=== PATIENT | female | born 1945 | race Caucasian/White ===

== ENCOUNTER 2020-02-07 17:27 | Inpatient (IN) ==
[2020-02-07] MEDS ORDERED: Naloxone 0.4 MG/ML INJ IVP PRN (19:56)
[2020-02-07] MEDS ORDERED: Ondansetron 4 MG/2 ML VIAL IVP PRN (19:56)
[2020-02-07] MEDS ORDERED: Ipratropium/Albuterol Neb 3 ML IH PRN (20:00)
[2020-02-07] MEDS: 0.9 % Sodium Chloride 1,000 ML IVC SCH (20:12)
[2020-02-07] MEDS: *HR* Heparin 5,000 UNIT/ML VIAL SQ SCH (20:34)
[2020-02-07] MEDS ORDERED: Dextrose Gel 15 GM/37.5 ML TUBE PO PRN ×2 (20:48)
[2020-02-07] MEDS ORDERED: *HR* HYDROmorphone (PF) 1 MG/ML SYRINGE IVP PRN (20:48)
[2020-02-07] MEDS ORDERED: *HR* Dextrose 50 % in Water (Syg) 50 ML SYRINGE IVP PRN (20:48)
[2020-02-07] MEDS ORDERED: D5% in Water 1,000 ML IVC PRN (20:48)
[2020-02-07] MEDS: Insulin LISPRO 300 UNITS/3 ML VIAL SQ SCH ×2 (22:08→22:09)
[2020-02-07] MEDS: Topiramate 25 MG TABLET PO SCH (22:13)
[2020-02-07] MEDS: clonazePAM 1 MG TABLET PO SCH (22:13)
[2020-02-08] MEDS: Piperacillin/Tazobactam 3.375 GM in 0.9 % Sodium Chloride Mini Bag 100 ML IVPB SCH ×4 (00:11→23:36)
[2020-02-08] MEDS: Acetaminophen 325 MG TABLET PO PRN ×2 (04:38→11:41)
[2020-02-08] MEDS: *HR* Heparin 5,000 UNIT/ML VIAL SQ SCH ×3 (04:39→20:24)
[2020-02-08] MEDS: 0.9 % Sodium Chloride 1,000 ML IVC SCH (04:39)
[2020-02-08 05:04] LABS: Basophils % 0.2 %; Eosinophils # 0.3 K/mcL (0.0-0.6); Hemoglobin 13.2 g/dL (11.5-15.4); Immature Granulocytes % 0.3 % (0-4); Lymphocytes # 1.8 K/mcL (0.6-4.6); Lymphocytes % 13.9 %; Mean Corpuscular HGB Conc 31.4 g/dL (31.6-35.5); Mean Corpuscular Hemoglobin 31.5 pg (28.0-33.3); Mean Corpuscular Volume 100.2 fL (83.0-100.0); Mean Platelet Volume 9.5 fL (9.4-12.4); Monocytes # 0.9 K/mcL (0.0-1.3); Neutrophils # 10.1 K/mcL (1.6-8.9); Platelet Count 214 K/mcL (140-400); Red Blood Count 4.19 M/mcL (3.82-4.97); Red Cell Distribution Width 13.1 % (11.5-14.5); Segmented Neutrophils % 76.6 %; White Blood Count 13.2 K/mcL (4.3-11.1)
[2020-02-08 05:07] LABS: INR 1.1; Prothrombin Time 12.1 Seconds (9.4-12.1)
[2020-02-08 05:23] LABS: Alanine Aminotransferase 31 Units/L (7-52); Albumin 3.9 g/dL (3.5-5.7); Albumin/Globulin Ratio 1.7 (1.1-2.2); Alkaline Phosphatase 68 Units/L (34-104); Aspartate Amino Transferase 38 Units/L (13-39); BUN/Creatinine Ratio 29 (6-26); Blood Urea Nitrogen 25 mg/dL (8-23); Calcium 9.2 mg/dL (8.6-10.3); Carbon Dioxide 23 mEq/L (23-29); Chloride 106 mEq/L (98-107); Globulin 2.3 g/dL (2.4-3.5); Glucose 102 mg/dL (70-105); Magnesium 1.2 mg/dL (1.6-2.6); Osmolality,Calculated 293 (280-300); Phosphorous 2.4 mg/dL (2.7-4.5); Potassium 3.6 mEq/L (3.5-5.1); Sodium 139 mEq/L (136-145); Total Protein 6.2 g/dL (6.4-8.9); eGFR For African Americans > 60 (> 60); eGFR For Non-African Americans > 60 (> 60)
[2020-02-08] MEDS: Insulin LISPRO 300 UNITS/3 ML VIAL SQ SCH ×4 (07:37→20:14)
[2020-02-08] MEDS: Topiramate 25 MG TABLET PO SCH ×2 (07:54→20:23)
[2020-02-08] MEDS: QUEtiapine Fumarate 100 MG TABLET PO SCH ×2 (07:54→20:23)
[2020-02-08] MEDS: clonazePAM 1 MG TABLET PO SCH (07:55)
[2020-02-08] MEDS ORDERED: NON-FORMULARY MEDICATION 1 EACH EACH (Sotalol Hcl [Betapace] 120 MG) PO SCH (09:00)
[2020-02-08] MEDS ORDERED: clonazePAM 1 MG TABLET PO PRN (10:35)
[2020-02-08] MEDS ORDERED: clonazePAM 0.5 MG TABLET PO PRN (11:49)
[2020-02-08] MEDS: Ketorolac 15 MG/ML VIAL IVP PRN (20:23)
[2020-02-09 04:34] LABS: Basophils % 0.2 %; Eosinophils # 0.3 K/mcL (0.0-0.6); Eosinophils % 3.2 %; Hematocrit 37.1 % (35.3-44.9); Hemoglobin 11.6 g/dL (11.5-15.4); Immature Granulocytes % 0.4 % (0-4); Lymphocytes # 1.9 K/mcL (0.6-4.6); Lymphocytes % 20.9 %; Mean Corpuscular HGB Conc 31.3 g/dL (31.6-35.5); Mean Corpuscular Hemoglobin 31.4 pg (28.0-33.3); Mean Corpuscular Volume 100.3 fL (83.0-100.0); Mean Platelet Volume 9.7 fL (9.4-12.4); Monocytes # 0.9 K/mcL (0.0-1.3); Monocytes % 9.9 %; Neutrophils # 6.1 K/mcL (1.6-8.9); Platelet Count 179 K/mcL (140-400); Red Cell Distribution Width 13.1 % (11.5-14.5); Segmented Neutrophils % 65.4 %; White Blood Count 9.3 K/mcL (4.3-11.1)
[2020-02-09 04:52] LABS: Alanine Aminotransferase 37 Units/L (7-52); Albumin 3.1 g/dL (3.5-5.7); Albumin/Globulin Ratio 1.4 (1.1-2.2); Alkaline Phosphatase 72 Units/L (34-104); Aspartate Amino Transferase 36 Units/L (13-39); BUN/Creatinine Ratio 18 (6-26); Bilirubin,Total 0.8 mg/dL (0.3-1.0); Blood Urea Nitrogen 14 mg/dL (8-23); Calcium 8.2 mg/dL (8.6-10.3); Carbon Dioxide 28 mEq/L (23-29); Chloride 107 mEq/L (98-107); Globulin 2.2 g/dL (2.4-3.5); Glucose 116 mg/dL (70-105); Osmolality,Calculated 293 (280-300); Potassium 3.4 mEq/L (3.5-5.1); Sodium 141 mEq/L (136-145); Total Protein 5.3 g/dL (6.4-8.9); eGFR For African Americans > 60 (> 60); eGFR For Non-African Americans > 60 (> 60)
[2020-02-09] MEDS: Ketorolac 15 MG/ML VIAL IVP PRN ×2 (05:11→12:18)
[2020-02-09] MEDS: *HR* Heparin 5,000 UNIT/ML VIAL SQ SCH ×3 (05:11→22:38)
[2020-02-09] MEDS ORDERED: MOM Conc 10 ML UD.LIQ PO ONE (08:01)
[2020-02-09] MEDS ORDERED: Potassium Chloride Elixir 20 MEQ/15 ML UDC PO ONE (08:28)
[2020-02-09] MEDS: Insulin LISPRO 300 UNITS/3 ML VIAL SQ SCH ×4 (08:48→19:58)
[2020-02-09] MEDS: DilTIAZem CD (24hr) 120 MG CAP.ER.24H PO SCH (08:51)
[2020-02-09] MEDS: Topiramate 25 MG TABLET PO SCH ×2 (08:51→19:59)
[2020-02-09] MEDS: Piperacillin/Tazobactam 3.375 GM in 0.9 % Sodium Chloride Mini Bag 100 ML IVPB SCH ×3 (08:52→23:46)
[2020-02-09] MEDS: QUEtiapine Fumarate 100 MG TABLET PO SCH ×2 (08:52→19:59)
[2020-02-09] MEDS: Acetaminophen 325 MG TABLET PO PRN (20:00)
[2020-02-10] MEDS: *HR* Heparin 5,000 UNIT/ML VIAL SQ SCH ×3 (05:36→20:41)
[2020-02-10] MEDS ORDERED: *HR* FentaNYL (PF) 100 MCG/2 ML VIAL ONE (07:50)
[2020-02-10] MEDS ORDERED: *HR* Propofol 200 MG/20 ML VIAL IVP ONE (07:50)
[2020-02-10] MEDS: Insulin LISPRO 300 UNITS/3 ML VIAL SQ SCH ×4 (08:08→20:34)
[2020-02-10] MEDS: Piperacillin/Tazobactam 3.375 GM in 0.9 % Sodium Chloride Mini Bag 100 ML IVPB SCH ×3 (08:13→23:54)
[2020-02-10] MEDS: DilTIAZem CD (24hr) 120 MG CAP.ER.24H PO SCH (08:14)
[2020-02-10] MEDS: QUEtiapine Fumarate 100 MG TABLET PO SCH ×2 (08:14→20:39)
[2020-02-10] MEDS: Topiramate 25 MG TABLET PO SCH ×2 (08:14→20:39)
[2020-02-10] MEDS ORDERED: *HR* PHENYLEPHRINE 1,000 MCG/10 ML SYRINGE IVP ONE (09:42)
[2020-02-10] MEDS ORDERED: Neostigmine Methylsulfate 3 MG/3 ML SYRINGE ONE (09:56)
[2020-02-10] MEDS ORDERED: Naloxone 0.4 MG/ML INJ IVP PRN (11:14)
[2020-02-10] MEDS ORDERED: Ondansetron 4 MG/2 ML VIAL IVP PRN (11:14)
[2020-02-10] MEDS ORDERED: Dextrose Gel 15 GM/37.5 ML TUBE PO PRN ×2 (11:14)
[2020-02-10] MEDS ORDERED: D5% in Water 1,000 ML IVC PRN (11:14)
[2020-02-10] MEDS ORDERED: *HR* Dextrose 50 % in Water (Syg) 50 ML SYRINGE IVP PRN (11:14)
[2020-02-10] MEDS: clonazePAM 0.5 MG TABLET PO PRN (12:05)
[2020-02-10] MEDS: *HR* OxyCODONE/APAP 5/325 TABLET PO PRN (15:20)
[2020-02-11 04:46] LABS: Hematocrit 37.7 % (35.3-44.9); Hemoglobin 11.8 g/dL (11.5-15.4); Mean Corpuscular HGB Conc 31.3 g/dL (31.6-35.5); Mean Corpuscular Hemoglobin 31.6 pg (28.0-33.3); Mean Corpuscular Volume 100.8 fL (83.0-100.0); Mean Platelet Volume 10.2 fL (9.4-12.4); Platelet Count 210 K/mcL (140-400); Red Blood Count 3.74 M/mcL (3.82-4.97); Red Cell Distribution Width 12.9 % (11.5-14.5); White Blood Count 12.1 K/mcL (4.3-11.1)
[2020-02-11 05:09] LABS: BUN/Creatinine Ratio 10 (6-26); Blood Urea Nitrogen 8 mg/dL (8-23); Calcium 8.7 mg/dL (8.6-10.3); Carbon Dioxide 25 mEq/L (23-29); Chloride 107 mEq/L (98-107); Glucose 151 mg/dL (70-105); Osmolality,Calculated 285 (280-300); Potassium 4.2 mEq/L (3.5-5.1); Sodium 137 mEq/L (136-145); eGFR For African Americans > 60 (> 60); eGFR For Non-African Americans > 60 (> 60)
[2020-02-11] MEDS: *HR* Heparin 5,000 UNIT/ML VIAL SQ SCH ×3 (08:07→21:04)
[2020-02-11] MEDS: QUEtiapine Fumarate 100 MG TABLET PO SCH ×2 (08:20→21:03)
[2020-02-11] MEDS: DilTIAZem CD (24hr) 120 MG CAP.ER.24H PO SCH (08:21)
[2020-02-11] MEDS: Piperacillin/Tazobactam 3.375 GM in 0.9 % Sodium Chloride Mini Bag 100 ML IVPB SCH (08:22)
[2020-02-11] MEDS: Topiramate 25 MG TABLET PO SCH ×2 (08:22→21:03)
[2020-02-11] MEDS: *HR* OxyCODONE/APAP 5/325 TABLET PO PRN ×2 (08:24→16:51)
[2020-02-11] MEDS: Insulin LISPRO 300 UNITS/3 ML VIAL SQ SCH ×4 (08:24→21:07)
[2020-02-11] MEDS: polyethylene glycoL 3350 17 GM POWD.PACK PO SCH ×2 (12:59→21:02)
[2020-02-11] MEDS: clonazePAM 0.5 MG TABLET PO PRN (21:02)
[2020-02-12 04:41] LABS: Basophils % 0.3 %; Eosinophils # 0.2 K/mcL (0.0-0.6); Eosinophils % 2.7 %; Hematocrit 31.3 % (35.3-44.9); Immature Granulocytes % 0.3 % (0-4); Lymphocytes # 2.3 K/mcL (0.6-4.6); Lymphocytes % 29.6 %; Mean Corpuscular HGB Conc 31.3 g/dL (31.6-35.5); Mean Corpuscular Hemoglobin 31.8 pg (28.0-33.3); Mean Corpuscular Volume 101.6 fL (83.0-100.0); Mean Platelet Volume 10.5 fL (9.4-12.4); Monocytes # 0.7 K/mcL (0.0-1.3); Monocytes % 8.4 %; Neutrophils # 4.6 K/mcL (1.6-8.9); Platelet Count 174 K/mcL (140-400); Red Blood Count 3.08 M/mcL (3.82-4.97); Red Cell Distribution Width 13.3 % (11.5-14.5); Segmented Neutrophils % 58.7 %; White Blood Count 7.8 K/mcL (4.3-11.1)
[2020-02-12 04:45] LABS: Hemoglobin 9.8 g/dL (11.5-15.4)
[2020-02-12] MEDS: *HR* Heparin 5,000 UNIT/ML VIAL SQ SCH (05:58)
[2020-02-12 07:15] VITALS: BP 115/70
[2020-02-12] MEDS: Insulin LISPRO 300 UNITS/3 ML VIAL SQ SCH (08:07)
[2020-02-12] MEDS: polyethylene glycoL 3350 17 GM POWD.PACK PO SCH (08:10)
[2020-02-12] MEDS: DilTIAZem CD (24hr) 120 MG CAP.ER.24H PO SCH (08:11)
[2020-02-12] MEDS: Topiramate 25 MG TABLET PO SCH (08:12)
[2020-02-12] MEDS: QUEtiapine Fumarate 100 MG TABLET PO SCH (08:12)
== END 2020-02-12 10:55 | disposition home or self-care (01) | DRG 418 ==
LOC: 3ANU → SUATTDRO 18:55
PROVIDERS: ADMIT Family Medicine; ATTEND Internal Medicine

== ENCOUNTER 2021-06-13 13:15 | Observation (INO) ==
[2021-06-13] MEDS ORDERED: Acetaminophen 325 MG TABLET PO PRN ×2 (15:40→16:23)
[2021-06-13] MEDS ORDERED: Naloxone 0.4 MG/ML INJ IVP PRN (15:40)
[2021-06-13] MEDS ORDERED: Melatonin 3 MG TABLET PO PRN (15:40)
[2021-06-13] MEDS ORDERED: Ondansetron 4 MG/2 ML VIAL IVP PRN (15:40)
[2021-06-13] MEDS ORDERED: SODIUM CHLORIDE/NAHCO3/KCL/PEG 4,000 ML SOLN.RECON PO ONE (17:00)
[2021-06-13] MEDS: Pantoprazole 40 MG VIAL IVP SCH (17:36)
[2021-06-13 18:24] LABS: Influenza A PCR Negative (Negative); Influenza B PCR Negative (Negative); Resp. Syncytial Virus PCR Negative (Negative)
[2021-06-13 20:52] LABS: SARS-CoV-2 by PCR (In House) Negative (Negative)
[2021-06-13] MEDS ORDERED: clonazePAM 1 MG TABLET PO SCH (21:00)
[2021-06-14 03:33] LABS: INR 1.1; Prothrombin Time 12.4 Seconds (9.4-12.1)
[2021-06-14 04:30] LABS: Basophils % 0.5 %; Eosinophils # 0.3 K/mcL (0.0-0.6); Eosinophils % 7.8 %; Hematocrit 25.6 % (35.3-44.9); Hematocrit 26.7 % (35.3-44.9); Hemoglobin 8.3 g/dL (11.5-15.4); Immature Granulocytes % 0.3 % (0-4); Lymphocytes # 1.4 K/mcL (0.6-4.6); Lymphocytes % 35.5 %; Mean Corpuscular HGB Conc 31.1 g/dL (31.6-35.5); Mean Corpuscular Hemoglobin 29.1 pg (28.0-33.3); Mean Corpuscular Volume 93.7 fL (83.0-100.0); Mean Platelet Volume 9.6 fL (9.4-12.4); Monocytes # 0.3 K/mcL (0.0-1.3); Monocytes % 8.3 %; Neutrophils # 1.9 K/mcL (1.6-8.9); Platelet Count 194 K/mcL (140-400); Red Blood Count 2.85 M/mcL (3.82-4.97); Segmented Neutrophils % 47.6 %
[2021-06-14 04:49] LABS: Calcium 8.3 mg/dL (8.6-10.3); Magnesium 1.8 mg/dL (1.6-2.6); Potassium 3.8 mEq/L (3.5-5.1)
[2021-06-14 06:40] LABS: Hematocrit 29.3 % (35.3-44.9); Hemoglobin 9.1 g/dL (11.5-15.4)
[2021-06-14] MEDS ORDERED: *HR* FentaNYL (PF) 100 MCG/2 ML VIAL ONE (07:09)
[2021-06-14] MEDS ORDERED: *HR* Midazolam HCl 5 MG/5 ML VIAL IVP ONE ×2 (07:09→07:35)
[2021-06-14] MEDS ORDERED: *HR* FentaNYL (PF) 100 MCG/2 ML VIAL IVP ONE (07:35)
[2021-06-14] MEDS: Pantoprazole 40 MG VIAL IVP SCH (09:01)
[2021-06-14] MEDS ORDERED: lisinopriL 10 MG TABLET PO SCH (12:00)
[2021-06-14] MEDS ORDERED: QUEtiapine Fumarate 100 MG TABLET PO SCH (12:00)
[2021-06-14] MEDS ORDERED: DilTIAZem CD (24hr) 120 MG CAP.ER.24H PO SCH (12:00)
[2021-06-14 12:06] VITALS: O2SAT 97
[2021-06-14] MEDS ORDERED: Hydrocortisone Rectal 2.5% CRM 28 GM TUBE RC SCH (15:00)
[2021-06-14] MEDS ORDERED: clonazePAM 1 MG TABLET PO SCH (15:00)
[2021-06-14 15:04] VITALS: BP 109/69; PULSE 66; TEMP 97.6
[2021-06-14] MEDS ORDERED: Topiramate 25 MG TABLET PO SCH (21:00)
[2021-06-14] MEDS ORDERED: QUEtiapine Fumarate 300 MG TABLET PO SCH (21:00)
== END 2021-06-14 18:06 | disposition home or self-care (01) ==
LOC: 3ANU
PROVIDERS: ADMIT Internal Medicine; ATTEND Internal Medicine